=== PATIENT | male | born 1985 | race Caucasian/White ===

== ENCOUNTER 2023-01-02 21:09 | Emergency (ER) | payer BC ==
[~2023-01-02] VITALS: Ht 167.6 cm; Wt 87.1 kg
[2023-01-02 21:31] VITALS: BP 125/67; PULSE 84; RESP 16; TEMP 97.4; O2SAT 100
--- NOTE | 2023-01-02 21:36 | NUR ---
TO BED 7 VIA W/C FROM TRIAGE
--- NOTE | 2023-01-02 21:40 | NUR ---
37 yo m bib from home cc of 9/10 right calf pain. pt stated that he felt a sharp pain in the calf while stepping down from a ladder. it formed like a small ball in the calf. swelling noted to right calf and pt is experiencing pain when trying to straighten the leg. denies PMHx and allergy A/Ox4, not in distress. on monitor. call light within reach, pt instructed on how to use call light, pt returned demonstration. all needs met at this time.
--- NOTE | 2023-01-02 21:45 | NUR ---
Patient being evaluated by DR. ALCANTAR at bedside.
[2023-01-02] MEDS ORDERED: KETOROLAC 30 MG/ML VIAL IM ONE (21:50)
[2023-01-02] MEDS ORDERED: CYCLOBENZAPRINE 10 MG TAB PO ONE (21:50)
[2023-01-02] MEDS ORDERED: IBUP-2213 PO (22:34)
--- NOTE | 2023-01-02 22:55 | NUR ---
Crutches dispensed. Taught proper use, patient returned demo.
[2023-01-02 22:58] VITALS: BP 125/67; PULSE 84; RESP 16; TEMP 97.4; O2SAT 100
--- NOTE | 2023-01-02 22:58 | NUR ---
Patient discharged with v/s stable. Written and verbal after care instructions given and explained. Patient alert, oriented and verbalized understanding of instructions. Wheel Chair Assisted with to car. All questions addressed prior to discharge. ID band removed. Patient advised to follow up with PMD. Rx given to pt. Patient educated on indication of medication including possible reaction and side effects. Opportunity to ask questions provided and answered.
== END 2023-01-02 22:58 | disposition home or self-care (01) ==
LOC: MED 21:09
DX: M79.661 Pain in right lower leg (principal)
CPT/HCPCS: 96372; 99283; J1885